=== PATIENT | female | born 1980 | race Caucasian/White ===

== ENCOUNTER 2021-03-09 00:50 | Emergency (ER) | payer OTHER ==
[2021-03-09 04:02] LABS: BUN/CREATININE RATIO 9 (0-10)
[2021-03-09 05:19] LABS: HEMOGLOBIN 8.6 gm/dl (12.3-15.3); RED BLOOD COUNT 4.03 M/UL (4.00-5.10); WHITE BLOOD COUNT 10.3 K/UL (4.5-11.0)
== END 2021-03-09 07:05 | disposition home or self-care (01) ==
LOC: ER1 00:50
PROVIDERS: Family Medicine
DX: S20.319A Abrasion of unspecified front wall of thorax, initial encounter (principal); V49.40XA Driver injured in collision with unspecified motor vehicles in traffic accident, initial encounter; Z23 Encounter for immunization
CPT/HCPCS: 71111; 80053; 84703; 85025; 90471; 90715; 96374; 96375; 99283; J1885; J2405